=== PATIENT | male | born 1950 | race Native Hawaiian/Other Pacific Islander ===

== ENCOUNTER 2016-06-21 17:32 | Emergency (ER) | payer MEDICARE ==
[~2016-06-21] VITALS: Ht 165.1 cm; Wt 71.7 kg
--- NOTE | 2016-06-21 17:44 | NUR ---
PRESENTS SELF TO ED DUE TO SYNCOPAL EPISODE X 2 HOURS LOAD TESTER, FELL AND HIT BACK OF HEAD. PT ARRIVED AAO3, APPEARS IN NO ACUTE DISTRESS,. RESPIRATION EVEN AND UNLABORED,. NO CHEST PAIN OR DISCOMFORT. SKIN IS WARM TO TOUCH AND NON DIAPHORETIC. PATIENT AFEBRILE. VSS. GOWNED PT AND PLACED ON TELE MONITOR. IV INSERTED TO RAC-20, BLOOD SAMPLE SENT TO LAB.
[2016-06-21 18:06] LABS: BASOPHILS # (AUTO) 0.1 /CMM (0.0-0.2); BASOPHILS % (AUTO) 0.6 % (0.0-2.0); EOSINOPHILS # (AUTO) 0.2 /CMM (0.0-0.7); EOSINOPHILS % (AUTO) 1.5 % (0.0-6.0); HEMATOCRIT 48 % (39-51); HEMOGLOBIN 15.4 g/dL (13.5-17.5); LYMPHOCYTES # (AUTO) 1.8 /CMM (0.8-4.8); LYMPHOCYTES % (AUTO) 14.5 % (20.0-44.0); MEAN CORPUSCULAR HEMOGLOBIN 25 PG (26.0-33.0); MEAN CORPUSCULAR HGB CONC 32 g/dl (31.0-36.0); MEAN CORPUSCULAR VOLUME 77 fL (80-96); MONOCYTES # (AUTO) 0.8 /CMM (0.1-1.30); MONOCYTES % (AUTO) 6.2 % (2.0-12.0); NEUTROPHILS # (AUTO) 9.4 /CMM (1.8-8.9); NEUTROPHILS % (AUTO) 77.2 % (43.0-81.0); PLATELET COUNT (AUTO) 158 /CMM (150-450); RDW COEFFICIENT OF VARIATION 13.6 (11.5-15.0); WHITE BLOOD COUNT (AUTO) 12.3 K/uL (4.3-11.0)
--- NOTE | 2016-06-21 18:11 | NUR ---
PATIENT TAKEN TO CT
[2016-06-21 18:20] LABS: CALCIUM, SERUM 8.9 mg/dL (8.5-10.1); CREATININE 1.2 mg/dL (0.6-1.3); POTASSIUM 3.8 mmol/L (3.5-5.1)
[2016-06-21 18:24] LABS: INR 0.98 (0.87-1.13); PROTHROMBIN TIME 10.2 SECS (9.5-12.7)
--- NOTE | 2016-06-21 18:40 | NUR ---
PAGED DR. LIVINGSTON FOR NEURO CONSULT
--- NOTE | 2016-06-21 18:49 | NUR ---
PRESENTED CASE TO SABRINA CHARGE NURSE AT [facility] FOR HIGHER LEVEL OF CARE TRANSFER, WILL CALL US BACK
--- NOTE | 2016-06-21 18:51 | NUR ---
CALLED PHARMACY FOR LETY
--- NOTE | 2016-06-21 18:53 | NUR ---
CALLED [facility] FOR TRANSPORT STANDBY, ETA 15 MIN
[2016-06-21] MEDS ORDERED: atorvastatin PO (18:59)
[2016-06-21] MEDS ORDERED: uloric PO (18:59)
[2016-06-21] MEDS ORDERED: LEVETIRACETAM (500MG) 500 MG in IV NS 0.9% 100 ML IV SCH (19:00)
--- NOTE | 2016-06-21 19:04 | NUR ---
PRESENTED CASE TO [facility] FOR HIGHER LEVEL OF CARE TRANSFER, REQUESTED FACE SHEET AND CT REPORT FAXED TO [phone]
--- NOTE | 2016-06-21 19:05 | NUR ---
DR LIVINGSTON RETURNED CALL, SPOKE WITH DR RAMIRES REGARDING CASE. CT HEAD SENT TO DR LIVINGSTON.
--- NOTE | 2016-06-21 19:07 | NUR ---
SABRINA CHARGE NURSE CALLED TO REJECT PATIENT, [facility] IS UNABLE TO PROVIDE NEURO INTERVENTION
--- NOTE | 2016-06-21 19:07 | NUR ---
report given to [facility] for camille
--- NOTE | 2016-06-21 19:19 | NUR ---
PT REPORT RECIEVED FROM AMAURY RN, PT IN BED ON MONITOR, VSS, PT FAMILY IS AT BEDSIDE WILL CONTINUE TO MONITOR.
--- NOTE | 2016-06-21 19:27 | NUR ---
KULDEEP FROM [facility] CALLED FOR PATIENT INFORMATION, REQUESTING FACE SHEET BE FAXED TO [phone] WILL CALL BACK WITH BED ASSIGNMENT
--- NOTE | 2016-06-21 19:48 | NUR ---
ALPA KUMAR CALLED TO STATE THERE IS NO BED AVAILABLE AT THIS TIME, AND ARE TRYING TO ACCOMIDATE. WILL CALL IN 2 HOURS FOR UPDATE
--- NOTE | 2016-06-21 19:49 | NUR ---
RE PRESENTED CASE TO [facility] FOR TRANSFER
[2016-06-21] MEDS ORDERED: ONDANSETRON HCL/PF 4 MG/2 ML VIAL ONE (19:57)
[2016-06-21] MEDS ORDERED: ONDANSETRON HCL/PF 4 MG/2 ML VIAL IV ONE (20:00)
--- NOTE | 2016-06-21 20:03 | NUR ---
DR. SHAFER ACCEPTED PT TO [facility]
--- NOTE | 2016-06-21 20:05 | NUR ---
PT VOMITMIED, MD MADE AWARE AND ZOFRAN WAS ORDERED FOR PT, PT STATES HE IS FEELING BETTER VOMITING, MD MADE AWARE WILL CONTINUE TO MONITOR.
[2016-06-21 20:06] VITALS: BP 148/84
--- NOTE | 2016-06-21 20:34 | NUR ---
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
== END 2016-06-21 20:37 | disposition short-term general hospital (02) ==
LOC: ER 17:34 → UNDOADMIN 18:42 → TELE-TD 18:42 → ER 20:37
DX: S06.5X0A Traumatic subdural hemorrhage without loss of consciousness, initial encounter (principal); X58.XXXA Exposure to other specified factors, initial encounter; Y93.89 Activity, other specified; Y92.89 Other specified places as the place of occurrence of the external cause; Y99.8 Other external cause status; R55 Syncope and collapse; S06.6X0A Traumatic subarachnoid hemorrhage without loss of consciousness, initial encounter; E78.00 Pure hypercholesterolemia, unspecified
CPT/HCPCS: 36415; 70450-TC; 71010-TC; 80048-TC; 85025-TC; 85730-TC; A4606; J1953; J2405; J7030; Z7610